=== PATIENT | male | born 1960 | race Caucasian/White ===

== ENCOUNTER → 2024-04-07 09:49 | Outpatient (REF) | payer BC, SELFPAY ==
[2024-04-07 11:52] LABS: ALT (SGPT) 41 U/L (0-50); AST (SGOT) 34 U/L (17-59); Albumin 4.9 g/dl (3.5-5.0); Alkaline Phosphatase 84 U/L (38-126); Blood Urea Nitrogen 18 mg/dl (9-20); Calcium 9.8 mg/dl (8.4-10.2); Carbon Dioxide 29 mmol/L (22-30); Chloride 103 mmol/L (98-107); Glucose 95 mg/dl (70-99); Potassium 4.8 mmol/L (3.5-5.1); Sodium 142 mmol/L (135-145); Total Bilirubin 0.6 mg/dl (0.2-1.3); Total Protein 7.6 g/dl (6.3-8.2); eGFR > 60.00
== END ==
LOC: RAD 09:49
PROVIDERS: ATTENDING PHYSICIAN Family Medicine
DX: R10.31 Right lower quadrant pain (principal); Z87.19 Personal history of other diseases of the digestive system
CPT/HCPCS: 36415; 80053

== ENCOUNTER 2024-06-23 06:37 | Day surgery (SDC) | payer BC, SELFPAY ==
[2024-06-09 13:02] VITALS: BMI 24.2
[2024-06-23] VITALS (9 sets, daily range): BP systolic 104–149; BP diastolic 70–93; BMI 24.2
--- NOTE | 2024-06-23 07:26 | W.SUR.PREOP ---
Pre-Operative Surgical Note
-
I have examined this patient prior to the performance of the scheduled procedure.
The patient's condition is unchanged from the time of the current History and
Physical and the patient is able to undergo the scheduled procedure.
[2024-06-23] MEDS: TRANSDERM-SCOP 1 PATCH TRANSDERM (08:52)
[2024-06-23] MEDS: TYLENOL 1000 MG PO (08:52)
[2024-06-23] MEDS: NORMOSOL-R/PLASMALYTE-A 1000 IV (09:12)
--- NOTE | 2024-06-23 11:23 | W.IMMPOSTOP ---
Surgical Immed Post Op Note
-
Primary Surgeon: John Wayne MD
Assisting Surgeon: Leti Nolasco PA-C
Pre-op Diagnosis: Umbilical hernia, right inguinal hernia
Post-op Diagnosis: Umbilical hernia; 1 cm
Right inguinal hernia, indirect
Procedure Performed: Open primary umbilical herniorrhaphy
Robotic assisted laparoscopic JOSETTE repair right inguinal hernia with mesh; 3D max large mid weight
Anesthesia Type: GETA +0.25% Marcaine with epi
Specimen / Cultures: None
Estimated Blood Loss: 6 mL
Complications: None immediate
Operative Findings: Umbilical hernia defect 1 cm or slightly smaller containing preperitoneal fat. Primary repair with 0 PDS suture.
Right indirect inguinal hernia, about 2 fingerbreadths in diameter. Moderate lipoma reduced out of inguinal canal/associated with right spermatic cord structures and excised to facilitate mesh placement. 3D max large mid weight mesh secured to
Guido's ligament with 2-0 Vicryl x 2. Peritoneal flap closed with 2-0 Monocryl STRATAFIX spiral.
Previous left inguinal herniorrhaphy appears well-healed. No adhesions. No additional incidental intra-abdominal findings.
The assistance of Leti Nolasco PA-C was required due to the complexity of the procedure. During the procedure Leti Nolasco PA-C assisted with port placement, robotic instrumentation and suture material exchanges, and closure of the surgical incision
sites. I was present for the entirety of the operative procedure.
[2024-06-23] MEDS: MORPHINE SULFATE 2 MG IV ×2 (11:46→12:11)
--- NOTE | 2024-06-23 11:52 | OR.RPT ---
Operative Report
Operative Report
Date of operative procedure: 06/23/2024
Primary Surgeon: John Wayne MD
Assisting Surgeon: Leti Nolasco PA-C
Pre-op Diagnosis: Umbilical hernia
Right inguinal hernia
Post-op Diagnosis: Umbilical hernia; 1 cm.
Right inguinal hernia, indirect.
Procedure Performed: Open primary umbilical herniorrhaphy
Robotic assisted laparoscopic JOSETTE repair right inguinal hernia with mesh; 3D max large mid weight
Anesthesia Type: GETA +0.25% Marcaine
Specimen / Cultures: None/none
Estimated Blood Loss: 6 mL
Complications: None immediate
Indications for operative procedure: The patient is a 63-year-old male recently seen in outpatient surgical evaluation secondary to a few month history of right inguinal discomfort and soreness followed by visible swelling. He had outpatient CT
imaging suggestive of a fat-containing right indirect inguinal hernia as well as fat-containing umbilical hernia. Physical examination confirmed the presence of both of these hernias. I reviewed with the patient treatment options and he wished to
pursue operative correction. We discussed various operative approaches to repair and have elected to proceed with an anticipated open umbilical herniorrhaphy, possible mesh and robotic assisted laparoscopic right inguinal herniorrhaphy with mesh.
The anticipated operative procedures were fully reviewed in detail with the patient preoperatively obtaining written informed consent.
Brief summary of operative Findings: Umbilical hernia defect 1 cm or slightly smaller containing preperitoneal fat. Primary repair with 0 PDS suture.
Right indirect inguinal hernia, about 2 fingerbreadths in diameter. Moderate lipoma reduced out of inguinal canal/associated with right spermatic cord structures and excised to facilitate mesh placement. 3D max large mid weight mesh secured to
Guido's ligament with 2-0 Vicryl x 2. Peritoneal flap closed with 2-0 Monocryl STRATAFIX spiral.
Previous left inguinal herniorrhaphy appears well-healed. No adhesions. No additional incidental intra-abdominal findings.
Operation detail: The patient was identified in the preoperative holding area. I confirmed the surgical sites and locations with the patient preoperatively which were then marked and initialed by myself. He was interviewed by the anesthesia and
nursing staff then brought back to the operating room. The patient was placed on the operating table in supine position. The bilateral upper extremities were carefully padded and tucked at the side utilizing the arm guard positioning system.
Pneumatic compression boots were on the bilateral lower extremities. Following induction of general endotracheal anesthesia the patient was administered Ancef 2 g IV for prophylactic antibiotic coverage. The patient's anterior abdominal wall was
now widely and sterilely prepped with ChloraPrep and then draped in the usual manner. The surgical timeout was completed and the procedures were confirmed.
I initially proceeded with making a horizontal incision with a 15 blade about 2 cm in length just above the umbilical stalk over the palpable hernia sac contents. The hernia sac was now sharply dissected free from its subcutaneous attachments and
the umbilical dermis was elevated. The hernia contained preperitoneal fat which was reduced and the fascial defect was cleared from the hernia sac to freshen the edges. The anterior rectus sheath was also exposed anteriorly and the preperitoneal
fat was dissected free from its attachments to the fascia circumferentially around the hernia defect as well. The fascial defect was just under 1 cm, about the size of the tip of a pinky finger. I therefore closed it primarily with 2 buried
interrupted [id number] 0 PDS sutures. The umbilical dermis was now tacked down to the anterior abdominal wall with a interrupted 3-0 Vicryl stitch x 2. Diallo's layer was closed with interrupted 3-0 Vicryl. Skin was closed with buried
erupted 4 Monocryl in the dermis.
Now the robotic procedure was commenced. Veress needle insufflation was established at the left subcostal midclavicular line location. Once insufflated to 12 mmHg pressure then a left midclavicular line 8 mm trocar was then placed. The robotic
scope was inserted, there was no evidence of iatrogenic injury from access. The Veress needle was withdrawn. An epigastric 8 mm trocar was placed just to the right of the midline. A right midclavicular line 8 mm trocar was placed. The patient
was then transition into Trendelenburg to expose the inguinal/pelvic space and the robot was docked.
At the surgeon console inspection of the pelvis confirmed the presence of a right indirect inguinal hernia. The previous left inguinal herniorrhaphy repair appeared well without any visible mesh shelling or folding. There were no peritoneal
adhesions in the left inguinal region either. There were no additional incidental intra-abdominal findings.
I began with creation of a peritoneal flap at the level of the right ASIS to the right medial umbilical ligament. The preperitoneal plane was now established along the length of the flap and developed inferiorly down to the inguinal space. The
medial dissection proceeded until the notch of the pubic symphysis was exposed at the midline followed by Guido's ligament on the right side. This dissection met up with the previous mesh placed for the left inguinal hernia repair. Guido's
ligament was now cleared through the direct and femoral space; both of which were normal. The underside of Guido's ligament was exposed as well. The peritoneal flap was now mobilized laterally down to the internal ring. The hernia sac was then
grasped and begun to be reduced out of the inguinal canal from an anterior lateral to anterior medial approach. I carefully continued to reduce the hernia sac off of the cremasteric fibers and cord contents all the way to the apex of the hernia
sac. Next the hernia sac was now reduced off of its posterior attachments with identification of the vas and the spermatic cord vessels. The hernia sac dissection continued back proximally past the turn in the right vas deferens and then overlying
the right iliac space to meet up with the medial dissection. The posterior dissection continued until there was wide separation between the vas and the spermatic cord vessels. The dissection continued posterior laterally for full exposure of the
myopectineal orifice. The indirect inguinal space and cord structures were again inspected. A lipomatous protrusion associated with the spermatic cord was identified and fully reduced off of it back proximal to the internal ring. The cord lipoma
was excised utilizing monopolar cautery to divided at the the neck to facilitate mesh placement.
With the myopectineal orifice now completely exposed hemostasis was confirmed. A 3D max large mid weight mesh was utilized for repair. The mesh was positioned parallel to the ileopubic tract. It was secured at 2 separate locations inferior
medially on Guido's ligament with 2 simple interrupted 2-0 Vicryl sutures. The patient was now begun to be taken out of Trendelenburg to confirm that the posterior aspect of the mesh was lying flat and that there was no shelling or undermining of
the mesh by the peritoneal edge. The peritoneal flap was now closed with a 2-0 Monocryl STRATAFIX spiral suture with a running Davis type stitch.
A flexible suction catheter was placed through an 8 mm trocar and introduced into the peritoneal flap to evacuate the air out of the preperitoneal space. This again confirmed good positioning of the inguinal hernia mesh. There was no shelling or
folding of the mesh and no undermining and mesh by the peritoneal edge. The peritoneal covering of the mesh was completely intact.
At this point the robot was undocked. All sponge instrument and needle counts were confirmed to be correct x 2. The CO2 insufflation was now carefully evacuated out of the abdominal cavity. The trocar sites were removed as well as the flexible
suction catheter. Skin was closed with 4-0 Monocryl. Sterile surgical glue dressings were applied. The patient tolerated the procedure well and was transferred to the recovery unit for routine postoperative monitoring.
The assistance of Leti Nolasco PA-C was required due to complexity of surgery. During the procedure Leti Nolasco PA-C assisted with port placement, robotic instrumentation and suture material exchanges as well as closure of the surgical sites. I
was present for the entirety of the operative procedure.
== END 2024-06-23 13:50 | disposition home or self-care (01) ==
LOC: SDS 06:37
PROVIDERS: ATTENDING PHYSICIAN Surgery; FAMILY PHYSICIAN Family Medicine
DX: K40.90 Unilateral inguinal hernia, without obstruction or gangrene, not specified as recurrent (principal); K42.9 Umbilical hernia without obstruction or gangrene
CPT/HCPCS: 49650; 49591; 93005; C1781

== ENCOUNTER → 2025-02-14 07:44 | Outpatient (REF) | payer BC, SELFPAY | LOC: RAD 07:44 | PROVIDERS: ATTENDING PHYSICIAN Physician Assistant; FAMILY PHYSICIAN Family Medicine | DX: R05.3 Chronic cough (principal) | CPT/HCPCS: 71046 ==

== ENCOUNTER → 2025-02-20 13:58 | Outpatient (REF) | payer BC, SELFPAY | LOC: RAD 13:58 | PROVIDERS: ATTENDING PHYSICIAN Physician Assistant; FAMILY PHYSICIAN Family Medicine | DX: J90 Pleural effusion, not elsewhere classified (principal) | CPT/HCPCS: 71260; Q9967 ==

== ENCOUNTER 2025-02-22 07:42 | Emergency (ER) | payer BC, SELFPAY ==
[2025-02-22] VITALS (7 sets, daily range): BP systolic 67–167; BP diastolic 73–109; BMI 22.1
--- NOTE | 2025-02-22 08:06 | ED.GENMED ---
History of Present Illness
General
Chief Complaint: Breathing Problem
Time Seen by Provider: 02/22/25 08:06
History of Present Illness
History of Present Illness:
FOCUSED PAST MEDICAL HISTORY
- The patient has a history of hyperlipidemia
REVIEW OF OLD RECORDS
- I reviewed the CAT scan of the chest with IV contrast that was obtained 02/20/2025. Nonspecific moderate sized right pleural effusion with associated compressive atelectasis is noted in the right middle and lower lobes. No masses. Chest x-ray
showed the effusion seen on 02/14/2025.
Note:
CHIEF COMPLAINT(S)
Shortness of breath worsening over several weeks.
HISTORY OF PRESENT ILLNESS
The patient is a 64-year-old male who presents with a chronic cough persisting for over seven weeks. Initially, after the symptoms persisted for more than two weeks, the patient visited their primary care provider (PCP) and was prescribed
antibiotics. The initial antibiotic failed to improve symptoms. A second course of antibiotics, doxycycline, was initiated. The patient remains on doxycycline but missed the dose today. Chest X-ray from June 16 showed a pleural effusion, and a
subsequent CT scan taken two days ago was reviewed by the patient, who found no indication of masses or signs of lung cancer. There is no history of congestive heart failure, lung problems, or trauma. The patient reports worsening symptoms and had
an episode this morning after a shower requiring them to sit down due to increased breathing discomfort. The patient denies any weight gain except an intentional weight loss of eight pounds following dietary changes for high HbA1c. The patient
mentions a known 'right renal aneurysm' and takes a statin for high cholesterol. There is no family history of cancer.
PAST MEDICAL AND SURGICAL HISTORY
- Right renal artery aneurysm
- High cholesterol, on statin therapy
SOCIAL DETERMINANTS AFFECTING HEALTH
Not explicitly mentioned.
PHYSICAL EXAM
- General: Well appearing in no distress
- HEENT: Moist oral mucosa
- Cardiovascular: No murmurs, normal heart rate, regular rhythm, No chest wall tenderness
- Pulmonary: No respiratory distress, however he has significant decreased breath sounds at the right base, no conversational dyspnea
- Abdomen: Soft with no peritoneal signs, no tenderness
- Neurologic: Excellent strength all extremities, no coordination deficits
- Psychiatric: Appropriate mental status, normal insight and judgement
- Extremities: Nontender, no edema, moves all extremities equally
- Skin: No rash, no lesions
ELECTROCARDIOGRAM (EKG)
Not mentioned.
PLAN
- Consult with Dr. Horvath, an interventional radiologist, with potential plans to perform thoracentesis to drain the pleural effusion.
- Consider a BNP test to rule out congestive heart failure as a cause for pleural effusion.
- Discussions about the pleural effusions ambiguity in origin and whether further antibiotics are warranted.
DIFFERENTIAL DIAGNOSIS
The Differential Diagnosis includes, in no particular order and is not limited to:
- Pleural effusion due to infection
- Pleural effusion due to renal artery aneurysm
- Malignancy (despite no masses observed on CT)
- Congestive heart failure
- Pulmonary embolism
- Chronic obstructive pulmonary disease (COPD)
- Tuberculosis
- Pneumonia
- Systemic lupus erythematosus
- Chronic kidney disease
SUMMARY OF ENCOUNTER
The patient presented to the emergency department with shortness of breath and a history of a chronic cough not resolved by antibiotics. Clinical examination revealed diminished breath sounds on the right side. Imaging studies showed a pleural
effusion without any mass or signs of lung cancer. Discussions with interventional radiologist Dr. Horvath are planned regarding fluid drainage. The plan includes testing for congestion indicators such as BNP to rule out heart failure.
DISPOSITION
- The patients case was discussed with Dr. Horvath for possible interventional radiology procedure during daytime hours.
- Await results of BNP to guide further management-related decisions.
ASSESSMENT
Right-sided pleural effusion with unknown etiology corroborated by decreased breath sounds and imaging results showing effusion. Potential cardiovascular origins to be ruled out. Plan for thoracentesis considered pending interventional radiology
consultation.
ADDITIONAL TESTING AND IMAGING CONSIDERED
- BNP level ordered to rule out congestive heart failure.
PATIENT EDUCATION AND COUNSELING
Discussed the potential causes of the pleural effusion, the possibility of an interventional procedure to alleviate symptoms, and the reasons ruling out heart failure.
MEDICATION RECONCILIATION
- Currently on doxycycline, though the patient missed todays dose.
- On a statin for cholesterol management.
MEDICAL DECISION MAKING
- Number and Complexity of Problems Addressed: Chronic conditions affecting care include a right renal artery aneurysm. The DDx list as above.
- Data:
- Category 1: Tests and documents - Reviewing chest X-ray and CT scan revealed pleural effusion without masses.
- Category 2: My independent interpretation of imaging confirmed pleural effusion.
- Category 3: Planned discussion with Dr. Horvath regarding management options.
- Risk:
- Consideration of procedures with risks (e.g., thoracentesis by IR team).
DIAGNOSIS
- Pleural effusion, unspecified (ICD-10: J90)
- Cough (ICD-10: R05)
- Dyspnea (ICD-10: R06.00)
RADIOLOGY
- Interventional radiology will perform thoracentesis (Dr. Leiva)
EKG
- Sinus 68, left axis deviation, no acute ST abnormality
LABS
- White count 4.1, hemoglobin 13.7, chemistries unremarkable, BNP 44
UPDATE
- I discussed case with IR who agrees to perform thoracentesis today. I also discussed with pulmonary and I have ordered appropriate studies on the effusion fluid.
SUMMARY OF ENCOUNTER
The patient, a 64-year-old male, was seen in the emergency department due to worsening shortness of breath over several weeks. He has a chronic cough and recent imaging revealed a pleural effusion with no signs of masses or cancer. A CT scan
affirmed the absence of lung masses, leading to uncertainty regarding the etiology of the effusion. A thoracentesis procedure is recommended to drain the pleural fluid, with the expectation that this will improve the patients symptoms. Initial blood
work did not indicate heart failure, and the patients BNP level was very low, minimizing suspicion of a cardiac cause. The patient was advised to follow up with a nutritionists and torch operator after discharge to ensure comprehensive management and
monitoring.
DISPOSITION
Discharge planned after the thoracentesis procedure in interventional radiology. Will follow up with Dr. Jeff, a nutritionists.
ASSESSMENT
Right-sided pleural effusion of uncertain etiology, presenting with dyspnea and decreased oxygen saturation. The primary goal is symptomatic relief through thoracentesis.
PLAN
- Proceed with thoracentesis performed by interventional radiology to drain pleural effusion.
- Discharge the patient post-procedure with follow-up with Dr. Jeff for pulmonology.
- Provide patient with contacts for follow-up, including a torch operator and Dr. Stephanie Douglas for primary care needs.
- Address any recurrence concerns and provide patient education about the management of potential recurrent effusions.
INDEPENDENT REVIEW OF LABS AND INTERPRETATION OF TESTS
My independent review of the initial blood work shows no signs of heart failure.
My independent interpretation of the CT scan shows a right-sided pleural effusion with no mass or signs of malignancy.
PROCEDURES
Thoracentesis planned in interventional radiology to alleviate the pleural effusion.
PATIENT EDUCATION AND COUNSELING
Discussed the possible causes of pleural effusion and necessity for thoracentesis. Educated patient about potential recurrence and importance of follow-up care with a nutritionists. Informed about the non-indication of heart failure based on current
tests and recommended follow-up with a torch operator.
FOLLOW-UP INSTRUCTIONS
Please follow up with Dr. Jeff, nutritionists, and torch operator for comprehensive evaluation after discharge. Consider contacting Dr. Stephanie Douglas for primary care appointments and further medical management.
MEDICATION RECONCILIATION
- Currently on doxycycline (missed dose today)
- On simvastatin for high cholesterol
MEDICAL DECISION MAKING
- Number and Complexity of Problems Addressed: Chronic conditions affecting care include a right renal artery aneurysm and differential diagnoses of pleural effusion, possible cardiac and pulmonary issues needing exploration.
Data:
Category 1:
- Reviewed lab tests confirm low BNP level; CT scan reviewed showed pleural effusion.
- Plan for thoracentesis was established for symptomatic relief.
Category 3:
- Discussion of management with Dr. Jeff for ongoing pulmonology care and testing of pleural fluid for further analysis.
-Risk:
Prescription medication management includes current statin therapy. Planning thoracentesis involves procedural risks, requiring detailed follow-up in outpatient settings.
DIAGNOSIS
- Pleural effusion, unspecified (ICD-10: J90)
- Dyspnea (ICD-10: R06.00)
Patient went for right-sided thoracentesis at approximately 1 PM today
I have given the patient contact information for cardiology (Sheri), pulmonary (My), and PMD (Stella)
The patient does report feeling improved on reassessment at 2 PM. I reviewed the chest x-ray and there is significant improvement regarding pleural effusion�reportedly 2 L of fluid was drained
He states he already has an appointment to see a nutritionists through [facility] tomorrow
Past History
Past History
ED Past Medical History: None
ED Past Surgical History: None
Social History
Tobacco: Non-smoker
Alcohol: None
Drug: None
Personal:
Living: with family
Phy Exam
Physical Exam
Physical Exam:
See HPI
Scores
Heart Failure Risk
Heart Failure Risk Score: Not Applicable
Course
Orders/Labs/Results
Orders:
Orders
02/22/25 08:08
Consult Interventional Radiology [[facility] CONSULT] Urgent
Consulting Provider: John Leiva
Was physician already notified: Yes
Procedure being ordered, including laterality if applicable: RIGHT thoracentesis
Acknowledgement that appropriate orders are entered: Yes
02/22/25 08:18
Body Fluid Cell Count Urgent
What is the Body Fluid: pleural right
Date Specimen was Collected: 02/22/25
Time Specimen was Collected: 13:30
Body Fluid Glucose Urgent
Fluid Source: Pleural
Other Source: right
Date Specimen was Collected: 02/22/25
Time Specimen was Collected: 13:30
Body Fluid LDH Urgent
Fluid Source: Pleural
Other Source: right
Date Specimen was Collected: 02/22/25
Time Specimen was Collected: 13:30
Body Fluid pH Urgent
Fluid Source: Pleural
Other Source: right
Date Specimen was Collected: 02/22/25
Time Specimen was Collected: 13:30
Fluid Culture with Gram Stain Urgent
KAIT Source: Pleural Fluid
Specimen Description:
Date Specimen was Collected: 02/22/25
Time Specimen was Collected: 13:30
02/22/25 08:23
Electrocardiogram (*1) Urgent
Reason for Study: Shortness of Breath
EKG- Treatment ONCE
02/22/25 08:28
Complete Blood Count/With Diff Urgent
Comprehensive Metabolic Panel Urgent
NT-proBNP Urgent
02/22/25 13:33
Chest Single View Frontal CR [CR Chest Single View] Urgent
Comment:
Reason For Exam: s/p right thoracentesis
02/22/25 13:36
Add On- LAB Urgent
Tests Added?: LDH
02/22/25 13:45
Add On- LAB Urgent
Tests Added?: cytology; RIGHT pleural fluid; 1:30pm, drained by IR ([place])
Abnormal Lab Results
02/22/25
08:28
WBC 4.1 L 10^3/uL
(4.8-10.8)
MCH 25.8 L pg
(27.0-31.0)
MCHC 32.1 L g/dL
(33.0-37.0)
Absolute Lymphs (auto) 0.5 L 10^3/uL
(1.2-3.4)
Lymphocytes % 12.3 L %
(20.5-51.1)
Monocytes % 10.6 H %
(1.7-9.3)
Chloride 109 H mmol/L
(98-107)
Glucose 107 H mg/dl
(70-99)
02/22/25 08:28
02/22/25 08:28
Vital Signs
Initial and Last Documented VS:
Initial Vital Signs
Temp Pulse Resp BP Pulse Ox
36.7 C 101 16 167/109 98
02/22/25 07:48 02/22/25 07:48 02/22/25 07:48 02/22/25 07:48 02/22/25 07:48
Last Documented Vital Signs
Temp Pulse Resp BP Pulse Ox
36.9 C 72 21 127/81 95
02/22/25 12:03 02/22/25 12:03 02/22/25 12:03 02/22/25 12:03 02/22/25 12:03
*Pulse Oximetry
SaO2: 98
Oxygen Mode of Delivery: Room air
Patient hypoxic: no
*Critical Care Note
Total Time (30-74mins, 75-104mins- exclusive of procedures): Not Applicable
ED Attending Note
-
Portions of this chart may have been created with voice recognition software.� Occasional wrong word or��sound alike� substitutions may have occurred due to the inherent limitations of voice recognition software.
Discharge Plan
Departure
Patient Disposition: Home (Routine Discharge)
Date of Disposition: 02/22/25
Time of Disposition: 13:06
Patient with high blood pressure during this ER visit?: Yes
Discharge Problem:
Pleural effusion
Instructions: Pleural effusion (DC), BLOOD PRESSURE
Prescriptions:
No Action
rosuvastatin 10 mg Tablet
10 mg PO QPM
acetaminophen [Tylenol Extra Strength] 500 mg tablet
1,000 mg PO Q6HPRN PRN (Reason: mild pain) Qty: 1 0RF
ibuprofen 200 mg tablet
400 - 600 mg PO Q6HPRN PRN (Reason: moderate pain) Qty: 1 0RF
polyethylene glycol 3350 [Miralax] 17 gram/dose powder
4 g PO DAILY PRN (Reason: Constipation) Qty: 119 0RF
Rx Instructions:
start a laxative such as MIRALAX on day 2 after surgery if no bowel movement yet as long as no nausea/vomiting and passing gas
oxycodone 5 mg tablet
5 mg PO Q4HPRN PRN (Reason: breakthrough/severe pain) Qty: 5 0RF
Referrals:
Pat Landon DO [Family Provider, Family Practice]
Hector Dupree MD [Active, Cardiology]
Gallo Juárez MD [Active, Pulmonary Medicine]
Stephanie Douglas DO [Active, Family Practice]
Activity Restrictions/Additional Instructions:
I am giving the names of several doctors to follow-up with. The nutritionists that I spoke to today's name Dr. Hale. I also ordered pleural fluid studies based on his recommendations. I have given you the contact information for a
local family doctor that you could follow-up with, Dr. Stephanie Douglas. Regarding cardiology since you do not have anybody, I have given you the contact information for Dr. Wade. Return here if worse or other concerns. Your basic blood work is
normal and the BNP level was 44 suggesting no sign of heart failure.
Interventions
Interventions:
*Risk Screen - Suicide Last Done: 02/22/25 07:48
*General Assessment Last Done: 02/22/25 08:11
*Neglect/Abuse Screening Last Done: 02/22/25 07:48
*ED- Fall Risk Assessment Last Done: 02/22/25 08:17
*ED COVID-19 Vaccine History Last Done: 02/22/25 08:17
ED- Cardiac Assessment Last Done: 02/22/25 08:13
ED- Pulmonary Assessment Last Done: 02/22/25 08:15
Discharge Date and Time
Print Language: BENINESE
[2025-02-22 08:46] LABS: Hematocrit 42.7 % (39.0-52.0); Hemoglobin 13.7 g/dL (13.0-18.0); Mean Corp Hgb Conc. 32.1 g/dL (33.0-37.0); Mean Corpuscular Volume 80.3 fL (80.0-94.0); Nucleated Red Blood Cells % 0 % (-); Platelet Count 232 10^3/uL (130-400); Red Cell Dist. Width 13.9 % (11.5-14.5)
[2025-02-22 08:59] LABS: ALT (SGPT) 23 U/L (0-50); AST (SGOT) 23 U/L (17-59); Albumin 4.0 g/dl (3.5-5.0); Alkaline Phosphatase 78 U/L (38-126); Blood Urea Nitrogen 20 mg/dl (9-20); Calcium 9.3 mg/dl (8.4-10.2); Carbon Dioxide 25 mmol/L (22-30); Chloride 109 mmol/L (98-107); Estimated Creatinine Clearance 84 ml/min; Glucose 107 mg/dl (70-99); Potassium 4.3 mmol/L (3.5-5.1); Sodium 142 mmol/L (135-145); Total Protein 6.7 g/dl (6.3-8.2); eGFR > 60.00
[2025-02-22 14:48] LABS: LDH 176 U/L (120-246)
[2025-02-22 14:56] LABS: Body Fluid Second Tech CMB
== END 2025-02-22 14:09 | disposition home or self-care (01) ==
LOC: EMR 07:42
PROVIDERS: CONSULT PHYSICIAN Radiology Vascular & Interventional Radiology; EMERGENCY PHYSICIAN Emergency Medicine; FAMILY PHYSICIAN Family Medicine
DX: J90 Pleural effusion, not elsewhere classified (principal); J98.11 Atelectasis; R03.0 Elevated blood-pressure reading, without diagnosis of hypertension; I72.2 Aneurysm of renal artery; E78.00 Pure hypercholesterolemia, unspecified
CPT/HCPCS: 99284; 32555; 71045; 80053; 82945; 83615; 83880; 83986; 85025; 87015; 87070; 87205; 88112; 88305; 89051; 93005

== ENCOUNTER → 2025-03-15 07:42 | Outpatient (REF) | payer BC, SELFPAY | LOC: RAD 07:42 | PROVIDERS: ATTENDING PHYSICIAN Internal Medicine Critical Care Medicine; FAMILY PHYSICIAN Family Medicine | DX: J90 Pleural effusion, not elsewhere classified (principal) | CPT/HCPCS: 71046 ==

== ENCOUNTER 2025-04-27 06:25 | Day surgery (SDC) | payer BC, SELFPAY | END 2025-04-27 14:06 | disposition home or self-care (01) | LOC: GI 06:25 | PROVIDERS: ATTENDING PHYSICIAN Student in an Organized Health Care Education/Training Program | DX: R63.4 Abnormal weight loss (principal); E61.1 Iron deficiency; K57.30 Diverticulosis of large intestine without perforation or abscess without bleeding; K64.9 Unspecified hemorrhoids; K44.9 Diaphragmatic hernia without obstruction or gangrene; K31.7 Polyp of stomach and duodenum; K25.9 Gastric ulcer, unspecified as acute or chronic, without hemorrhage or perforation; K31.89 Other diseases of stomach and duodenum; R11.0 Nausea; K63.5 Polyp of colon; K29.50 Unspecified chronic gastritis without bleeding; R89.7 Abnormal histological findings in specimens from other organs, systems and tissues; Q45.3 Other congenital malformations of pancreas and pancreatic duct | CPT/HCPCS: 43251; 45385; 43239; 88305; 88342 ==

== ENCOUNTER → 2025-06-01 07:54 | Outpatient (REF) | payer BC, SELFPAY | LOC: RAD 07:54 | PROVIDERS: ATTENDING PHYSICIAN Student in an Organized Health Care Education/Training Program; FAMILY PHYSICIAN Surgery Vascular Surgery; REFERRING PHYSICIAN Internal Medicine Critical Care Medicine | DX: R63.4 Abnormal weight loss (principal); R11.0 Nausea; J90 Pleural effusion, not elsewhere classified; R06.02 Shortness of breath | CPT/HCPCS: 71046 ==

== ENCOUNTER → 2025-06-05 07:00 | Outpatient (REF) | payer BC, SELFPAY ==
[2025-06-05 07:20] VITALS: BP 135/82; BP_SYST 82
[2025-06-05 08:06] VITALS: BP 110/73; BP_SYST 70
[2025-06-05 08:29] VITALS: BP 110/73
[2025-06-05 12:04] LABS: Body Fluid Second Tech CMB
== END ==
LOC: RADI 07:00
PROVIDERS: ATTENDING PHYSICIAN Internal Medicine Critical Care Medicine; FAMILY PHYSICIAN Family Medicine
DX: J90 Pleural effusion, not elsewhere classified (principal)
CPT/HCPCS: 32555; 71045; 82945; 83615; 84157; 87015; 87070; 87102; 87116; 87205; 87206; 88112; 88305; 89051

== ENCOUNTER → 2025-06-06 14:45 | Outpatient (REF) | payer BC, SELFPAY | LOC: HWRCS 14:45 | PROVIDERS: ATTENDING PHYSICIAN Family Medicine | DX: J90 Pleural effusion, not elsewhere classified (principal) | CPT/HCPCS: 93306 ==

== ENCOUNTER → 2025-06-08 07:33 | Outpatient (REF) | payer BC, SELFPAY | LOC: RAD 07:33 | PROVIDERS: ATTENDING PHYSICIAN Student in an Organized Health Care Education/Training Program; FAMILY PHYSICIAN Family Medicine | DX: R63.4 Abnormal weight loss (principal); R11.0 Nausea | CPT/HCPCS: 74177; Q9967 ==